=== PATIENT | male | born 1995 | race Caucasian/White ===

== ENCOUNTER 2017-06-19 17:03 | Emergency (ER) | payer OTHER ==
[~2017-06-19] VITALS: Ht 167.6 cm; Wt 77.3 kg
[2017-06-19 17:42] VITALS: BP 141/92; PULSE 112; RESP 18; TEMP 98.8; O2SAT 100
[2017-06-19] MEDS ORDERED: SODIUM CHLOR 0.9% 1000 ML INJ 1,000 ML IV SCH (18:02)
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
[2017-06-19] MEDS ORDERED: MORPHINE SULFATE 4 MG/ML INJ IV PUSH ONE (18:15)
[2017-06-19] MEDS ORDERED: ONDANSETRON HCL 4 MG/2 ML VIAL IV PUSH ONE (18:15)
[2017-06-19] MEDS ORDERED: SODIUM CHLORIDE 0.9% FLUSH 10 ML FLUSH IVF PRN (18:15)
[2017-06-19] MEDS ORDERED: IOHEXOL 350 MG/ML 10 ML VIAL (for RAD DIAG) IVCONTRAST ONE (18:38)
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
[2017-06-19 18:55] LABS: PROTHROMBIN TIME - PATIENT 10.4 SEC (9.8-11.6)
[2017-06-19 19:01] LABS: AUTOMATED NEUTROPHIL # 9.7 TH/MM3 (1.8-7.7); BASOPHIL % 0.3 % (0.0-2.0); EOSINOPHIL # 0.1 TH/MM3 (0-0.4); EOSINOPHIL % 0.6 % (0.0-4.0); HEMATOCRIT 49.4 % (39.0-51.0); HEMOGLOBIN 17.1 GM/DL (13.0-17.0); LYMPHOCYTE # 1.2 TH/MM3 (1.0-4.8); MEAN CELL VOLUME 83.8 FL (80.0-100.0); MEAN CORPUSCULAR HGB CONC 34.6 % (32.0-36.0); MEAN PLATELET VOLUME 8.2 FL (7.0-11.0); MONO % 8.7 % (0.0-8.0); MONOCYTE # 1.1 TH/MM3 (0-0.9); NEUT % 80.4 % (16.0-70.0); PLATELET COUNT 291 TH/MM3 (150-450); RED CELL DISTRIBUTION WIDTH 12.8 % (11.6-17.2); WHITE BLOOD COUNT 12.1 TH/MM3 (4.0-11.0)
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
[2017-06-19 19:07] LABS: CALCIUM 9.7 MG/DL (8.5-10.1); CREATININE 1.23 MG/DL (0.60-1.30)
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
[2017-06-19 19:52] VITALS: BP 158/67; PULSE 108; RESP 16; O2SAT 98
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
[2017-06-19 21:33] VITALS: BP 169/63; PULSE 112; RESP 16; O2SAT 99
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
[2017-06-19] MEDS ORDERED: CYCL5TAB PO (22:01)
[2017-06-19] MEDS ORDERED: HYDR-3516 PO (22:01)
[2017-06-19] MEDS ORDERED: ACETAMINOPHEN/HYDROcodone 325 MG/5 MG TAB PO ONE (22:30)
== END 2017-06-19 23:25 | disposition home or self-care (01) ==
LOC: NEPC 17:03
DX: S30.22XA Contusion of scrotum and testes, initial encounter (principal); M54.9 Dorsalgia, unspecified; M47.9 Spondylosis, unspecified; M25.572 Pain in left ankle and joints of left foot; R10.9 Unspecified abdominal pain; V13.4XXA Pedal cycle driver injured in collision with car, pick-up truck or van in traffic accident, initial encounter
CPT/HCPCS: 70450; 71260; 72125; 72129; 72132; 72148; 73090; 73610; 74177; 76870; 80048; 85025; 85610; 85730; 86850; 86900; 86901; 93975; 96361; 96374; 96375; 99285; J2270; J2405; J7030; L0484; Q9967